=== PATIENT | female | born 1965 | race Caucasian/White ===

== ENCOUNTER 2018-02-28 01:08 | Emergency (ER) | payer OTHER, SELFPAY ==
[2018-02-28] VITALS (46 sets, daily range): BP systolic 99–125; BP diastolic 43–86; PULSE 74–101; RESP 7–26; TEMP 36.5–37.3; O2SAT 91–100
[2018-02-28] MEDS: HYDROmorphone 2 MG/ML VIAL 1 MG IVP ×5 (01:30→05:42)
[2018-02-28 01:32] LABS: Abs Immature Grans 0.03 k/cumm (0.0-0.09); Absolute Basophil Count 0.06 k/cumm (0.0-0.2); Absolute Eosinophil Count 0.19 k/cumm (0.0-0.7); Absolute Lymphocyte Count 2.04 k/cumm (1.2-3.4); Absolute Neutrophil Count 7.76 k/cumm (1.2-6.7); Basophils % 0.6; Eosinophils % 1.8; HCT 37.7 % (36.0-46.0); HGB 12.9 g/dL (12.0-15.5); Immature Grans % 0.3; Lymphocytes % 18.9; Mean Corp. HGB Concentration 34.2 g/dL (32.0-36.0); Mean Corpuscular Hemoglobin 30.3 pg (27.0-33.0); Mean Corpuscular Volume 88.5 fL (80-95); Mean Platelet Volume 9.6 fL (8.0-11.0); Monocytes % 6.5; Neutrophils % 71.9; Platelet Count 309 x1000/uL (130-400); RBC 4.26 m/cumm (4.00-5.20); RBC Distribution Width 12.3 % (11.7-14.6); White Blood Cell Count 10.78 k/cumm (4.4-10.8)
[2018-02-28 01:48] LABS: ALT 23 U/L (12-78); AST 15 U/L (15-37); Albumin 3.3 g/dL (3.4-5.0); Alkaline Phosphatase 82 U/L (46-116); Anion Gap 8.6 mmol/L (3-11); BUN 18 mg/dL (7-18); Bilirubin, Total 0.3 mg/dL (0.2-1.0); CO2 26.4 mmol/L (21.0-32.0); CREATININE 0.68 mg/dL (0.55-1.02); Calcium 8.5 mg/dL (8.5-10.1); Chloride 106 mmol/L (98-107); Glucose 118 mg/dL (70-100); Lipase 100 U/L (73-393); Potassium 3.7 mmol/L (3.5-5.1); Sodium 141 mmol/L (136-145); Total Protein 6.7 g/dL (6.4-8.2); Troponin I < 0.02 ng/mL (0.00-0.06)
[2018-02-28] MEDS: Normal Saline 1,000 ML 1000 ML IV (01:50)
[2018-02-28] MEDS: Ondansetron 4 MG/2 ML VIAL IVP (01:50)
[2018-02-28] MEDS: Breeza Beverage 473 ML BTL PO (01:51)
[2018-02-28] MEDS: Omnipaque 350 MG/ML 50 ML BTL PO (01:51)
--- NOTE | 2018-02-28 02:15 | W.ED.GENAD ---
Discharge Plan Disposition Patient Disposition: [facility] Condition: Stable Discharge Details Chief Complaint: Abd Prob Clinical Impression: SBO (small bowel obstruction) Primary Care Provider: SUSANNA BELLA ED Provider: Milton Armando Home Meds and New Rx's Prescriptions: No Action fluoxetine [Prozac] 40 mg Capsule 40 mg PO DAILY RF: 0 Medical Decision Making This is a 52-year-old female who presents for abdominal pain. The patient had an appendectomy performed roughly 2-1/2 weeks ago. She had her denise removed roughly 4 days ago, and she has the lower inferior component of the postsurgical site packed secondary to a small amount of persistent drainage/dehiscence. Earlier this afternoon she had notable abdominal pain, with associated vomiting and nausea and persistent burping. She went to [place] emergency department, received a CT scan and laboratory workup, which per records appear relatively benign per the physician documentation. She was discharged home with oxycodone and Zofran. Upon arriving home she had continued and then subsequent worsening of her pain and symptoms. No continued vomiting. 911 was called, she was brought via EMS to [facility] for further evaluation. Physical exam does demonstrate notable abdominal pain throughout, voluntary guarding is present. Bowel sounds are present but reduced. Differential is broad, but with negative imaging and negative laboratory workup performed at [place] feel that an acute process is less likely. This could be a colonic spasm, SBO, or potential cardiac etiology that was not previously evaluated. We will get a repeat CT scan due to the severity and nature of her symptoms, however we will perform it with oral contrast and IV contrast to evaluate for any potential mesenteric ischemia. We will control the patient's pain, rehydrate, and reassess. EKG 1: 19 Rate 91, [place] 190, QTc 463, QRS 86, sinus rhythm, no significant ST elevations or depressions, no T wave inversions, no Q waves. 5:[address] scan has returned, and shows evidence of small bowel obstruction. Patient has required 3 mg of Dilaudid to moderate her pain. We will place an NG tube. The remainder of the patient's laboratory workup including troponin EKG are benign. Because the patient had her surgery at [place], that is where the majority of her care is from and since we have no available beds at this time we will contact [place] for a transfer back for further management, inpatient admission, and surgical consultation. 5:10 AM I contacted [facility] and discussed the case with the surgeon Dr May, he agrees on the current assessment and plan, as well as the need for transfer. He agrees to accept transfer, [facility]. I have extensively reviewed the treatment plan with the patient. I have addressed all patient concerns at this time. I have also discussed the plan with the admitting physician and they agree with the current assessment and plan and have agreed to assume responsibility for the patient. All parties demonstrate verbal understanding and agreement with our assessment and plan at this time. HPI General Date/Time Provider Initiated Documentation: 02/28/18 01:16. 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 Mccollum. Initial surgery went well, she had her denise removed this past Friday, 4 days ago. There was a small fluid collection that occurred at the base of the stapled region, and that area was packed with packing, and re-bandaged. This afternoon the patient developed diffuse abdominal pain, one episode of vomiting, multiple episodes of burping, but regular bowel movements. She went to [facility]'s emergency department and was seen and assessed there. Per the records a CT scan non-oral contrast was performed in conjunction with laboratory workup. Case was discussed with the on-call surgeon, and after negative CT scan and a benign laboratory workup patient was discharged home with Zofran and oxycodone. When she arrived at home she had worsening of her pain, increased severity of her symptoms, severe epigastric pain, continued nausea. Of concern for the worsening of her symptoms she called 911 and was transported via EMS at the patient's request to [facility] for further evaluation. Patient states that her symptoms feel similar to her previous small bowel obstruction. They are worsened with palpation, improved by nothing. She has no associated chest pain, hematuria, increased urinary frequency, hematemesis, hematochezia, melena, acholic stool, or dysuria. She denies any other complaints at this time. Related Data Home Medications Medication Instructions Recorded Confirmed fluoxetine [Prozac] 40 mg PO DAILY 02/28/18 02/28/18 General Stated Complaint: Abd Prob FAMILIA: 3 Review of Systems Review of Systems All systems reviewed & are unremarkable except as noted in HPI and below PFSH Social History Smoking/Tobacco Use Status: Never Exam Narrative Exam Narrative: 1.Const: Well-nourished, Well-developed, appearing stated age 2.Eyes: PERRL, no conjunctival injection, and symmetrical lids. 3.ENT: Atraumatic external nose and ears. Dry MM. Neck: Symmetric, trachea midline, No thyromegaly. 4.CVS: +S1/S2, No murmurs or gallops. Peripheral pulses 2+ and equal in all extremities. Brisk capillary refill in all extremities. 5.RESP: Unlabored respiratory effort. Clear to auscultation bilaterally. No wheezes rales or rhonchi 6.GI: Soft, minimally distended, No hepatosplenomegaly. Voluntary guarding throughout, generalized tenderness throughout on palpation of all components of the abdomen. Bowel sounds are present but reduced. Postoperative surgical site appears to be well-healing except for the most inferior component which demonstrates continued open component. The area is packed. No active draining, no associated redness or present discharge. 7.MSK: Normocephalic/Atraumatic, Extremities w/o deformity or ttp No cyanosis or clubbing, Normal movement of all extremities 8.Skin: Warm, Dry. No rashes or lesions. 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 Sensation grossly intact, no focal neurologic deficits. 10.Psych: (AAO) x3. Appropriate mood and affect Course Vital Signs Temperature 36.5 C 02/28/18 01:39 Pulse 101 H 02/28/18 01:39 Respiratory Rate 26 H 02/28/18 01:39 Blood Pressure 99/62 L 02/28/18 01:39 Pulse Oximetry 98 02/28/18 01:39 Temperature 36.5 C 02/28/18 01:39 Temperature Source Tympanic 02/28/18 01:39 Pulse 101 H 02/28/18 01:39 Respiratory Rate 26 H 02/28/18 01:39 Respiratory Effort 02/28/18 01:39 Blood Pressure 99/62 L 02/28/18 01:39 Blood Pressure Position Supine 02/28/18 01:39 Pulse Oximetry 98 02/28/18 01:39 Oxygen Delivery Method Room Air 02/28/18 01:39 Oxygen Flow Rate 0 02/28/18 01:39 Pain Level 9 02/28/18 01:57 Lab/Test Results Lab/Test Results: Laboratory Tests Range/Units 02/28/18 02/28/18 01:15 01:15 WBC (4.4-10.8) k/cumm 10.78 RBC (4.00-5.20) m/cumm 4.26 Hgb (12.0-15.5) g/dL 12.9 Hct (36.0-46.0) % 37.7 MCV (80-95) fL 88.5 MCH (27.0-33.0) pg 30.3 MCHC (32.0-36.0) g/dL 34.2 RDW (11.7-14.6) % 12.3 Plt Count (130-400) x1000/uL 309 MPV (8.0-11.0) fL 9.6 Immature Gran % 0.3 Neutrophils % 71.9 Lymphocytes % 18.9 Monocytes % 6.5 Eosinophils % 1.8 Basophils % 0.6 Absolute Neutrophils (1.2-6.7) k/cumm 7.76 H Absolute Lymphocytes (1.2-3.4) k/cumm 2.04 Absolute Monocytes (0.11-0.7) k/cumm 0.70 Absolute Eosinophils (0.0-0.7) k/cumm 0.19 Absolute Basophils (0.0-0.2) k/cumm 0.06 Sodium (136-145) mmol/L 141 Potassium (3.5-5.1) mmol/L 3.7 Chloride (98-107) mmol/L 106 Carbon Dioxide (21.0-32.0) mmol/L 26.4 Anion Gap (3-11) mmol/L 8.6 BUN (7-18) mg/dL 18 Creatinine (0.55-1.02) mg/dL 0.68 Estimated GFR/1.73 m2 (mL/min/1.73m2) >= 60.00 Glucose (70-100) mg/dL 118 H Calcium (8.5-10.1) mg/dL 8.5 Total Bilirubin (0.2-1.0) mg/dL 0.3 AST (15-37) U/L 15 ALT (12-78) U/L 23 Alkaline Phosphatase (46-116) U/L 82 Troponin I (0.00-0.06) ng/mL < 0.02 Total Protein (6.4-8.2) g/dL 6.7 Albumin (3.4-5.0) g/dL 3.3 L Lipase (73-393) U/L 100
--- NOTE | 2018-02-28 02:31 | ED.GENADUL_ITS ---
Discharge Plan Disposition Patient Disposition: [facility] Condition: Stable Discharge Details Chief Complaint: Abd Prob Clinical Impression: SBO (small bowel obstruction) Primary Care Provider: SUSANNA BELLA ED Provider: Milton Armando Home Meds and New Rx's Prescriptions: No Action fluoxetine [Prozac] 40 mg Capsule 40 mg PO DAILY RF: 0 Medical Decision Making This is a 52-year-old female who presents for abdominal pain. The patient had an appendectomy performed roughly 2-1/2 weeks ago. She had her denise removed roughly 4 days ago, and she has the lower inferior component of the postsurgical site packed secondary to a small amount of persistent drainage/ dehiscence. Earlier this afternoon she had notable abdominal pain, with associated vomiting and nausea and persistent burping. She went to [place] emergency department, received a CT scan and laboratory workup, which per records appear relatively benign per the physician documentation. She was discharged home with oxycodone and Zofran. Upon arriving home she had continued and then subsequent worsening of her pain and symptoms. No continued vomiting. 911 was called, she was brought via EMS to [facility] for further evaluation. Physical exam does demonstrate notable abdominal pain throughout, voluntary guarding is present. Bowel sounds are present but reduced. Differential is broad, but with negative imaging and negative laboratory workup performed at [place] feel that an acute process is less likely. This could be a colonic spasm, SBO, or potential cardiac etiology that was not previously evaluated. We will get a repeat CT scan due to the severity and nature of her symptoms, however we will perform it with oral contrast and IV contrast to evaluate for any potential mesenteric ischemia. We will control the patient's pain, rehydrate, and reassess. EKG 1: 19 Rate 91, [place] 190, QTc 463, QRS 86, sinus rhythm, no significant ST elevations or depressions, no T wave inversions, no Q waves. 5:[address] scan has returned, and shows evidence of small bowel obstruction. Patient has required 3 mg of Dilaudid to moderate her pain. We will place an NG tube. The remainder of the patient's laboratory workup including troponin EKG are benign. Because the patient had her surgery at [place], that is where the majority of her care is from and since we have no available beds at this time we will contact [place] for a transfer back for further management, inpatient admission, and surgical consultation. 5:10 AM I contacted [facility] and discussed the case with the surgeon Dr May, he agrees on the current assessment and plan, as well as the need for transfer. He agrees to accept transfer, [facility]. I have extensively reviewed the treatment plan with the patient. I have addressed all patient concerns at this time. I have also discussed the plan with the admitting physician and they agree with the current assessment and plan and have agreed to assume responsibility for the patient. All parties demonstrate verbal understanding and agreement with our assessment and plan at this time. HPI General Date/Time Provider Initiated Documentation: 02/28/18 01:16 . [facility] Narrative: This is a 52-year-old female with a past medical history of a diaphragmatic hernia as a child, history of small bowel obstruction , , tubal ligation, gallstones, and appendectomy on 13 April at [facility] with Dr. Mccollum. Initial surgery went well, she had her denise removed this past Friday, 4 days ago. There was a small fluid collection that occurred at the base of the stapled region, and that area was packed with packing, and re-bandaged. This afternoon the patient developed diffuse abdominal pain, one episode of vomiting, multiple episodes of burping, but regular bowel movements. She went to [facility]'s emergency department and was seen and assessed there. Per the records a CT scan non-oral contrast was performed in conjunction with laboratory workup. Case was discussed with the on-call surgeon, and after negative CT scan and a benign laboratory workup patient was discharged home with Zofran and oxycodone. When she arrived at home she had worsening of her pain, increased severity of her symptoms, severe epigastric pain, continued nausea. Of concern for the worsening of her symptoms she called 911 and was transported via EMS at the patient's request to [facility] for further evaluation. Patient states that her symptoms feel similar to her previous small bowel obstruction. They are worsened with palpation, improved by nothing. She has no associated chest pain , hematuria, increased urinary frequency, hematemesis, hematochezia, melena, acholic stool, or dysuria. She denies any other complaints at this time. Related Data Home Medications Medication Instructions Recorded Confirmed fluoxetine [Prozac] 40 mg PO DAILY 02/28/18 02/28/18 General Stated Complaint: Abd Prob FAMILIA: 3 Review of Systems Review of Systems All systems reviewed & are unremarkable except as noted in HPI and below PFSH Social History Smoking/Tobacco Use Status: Never Exam Narrative Exam Narrative: 1.Const: Well-nourished, Well-developed, appearing stated age 2.Eyes: PERRL, no conjunctival injection, and symmetrical lids. 3.ENT: Atraumatic external nose and ears. Dry MM. Neck: Symmetric, trachea midline, No thyromegaly. 4.CVS: +S1/S2, No murmurs or gallops. Peripheral pulses 2+ and equal in all extremities. Brisk capillary refill in all extremities. 5.RESP: Unlabored respiratory effort. Clear to auscultation bilaterally. No wheezes rales or rhonchi 6.GI: Soft, minimally distended, No hepatosplenomegaly. Voluntary guarding throughout, generalized tenderness throughout on palpation of all components of the abdomen. Bowel sounds are present but reduced. Postoperative surgical site appears to be well-healing except for the most inferior component which demonstrates continued open component. The area is packed. No active draining , no associated redness or present discharge. 7.MSK: Normocephalic/Atraumatic, Extremities w/o deformity or ttp No cyanosis or clubbing, Normal movement of all extremities 8.Skin: Warm, Dry. No rashes or lesions. 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 Sensation grossly intact, no focal neurologic deficits. 10.Psych: (AAO) x3. Appropriate mood and affect Course Vital Signs Temperature 36.5 C 02/28/18 01:39 Pulse 101 H 02/28/18 01:39 Respiratory Rate 26 H 02/28/18 01:39 Blood Pressure 99/62 L 02/28/18 01:39 Pulse Oximetry 98 02/28/18 01:39 Temperature 36.5 C 02/28/18 01:39 Temperature Source Tympanic 02/28/18 01:39 Pulse 101 H 02/28/18 01:39 Respiratory Rate 26 H 02/28/18 01:39 Respiratory Effort 02/28/18 01:39 Blood Pressure 99/62 L 02/28/18 01:39 Blood Pressure Position Supine 02/28/18 01:39 Pulse Oximetry 98 02/28/18 01:39 Oxygen Delivery Method Room Air 02/28/18 01:39 Oxygen Flow Rate 0 02/28/18 01:39 Pain Level 9 02/28/18 01:57 Lab/Test Results Lab/Test Results: Laboratory Tests Range/Units 02/28/18 02/28/18 01:15 01:15 WBC (4.4-10.8) k/cumm 10.78 RBC (4.00-5.20) m/cumm 4.26 Hgb (12.0-15.5) g/dL 12.9 Hct (36.0-46.0) % 37.7 MCV (80-95) fL 88.5 MCH (27.0-33.0) pg 30.3 MCHC (32.0-36.0) g/dL 34.2 RDW (11.7-14.6) % 12.3 Plt Count (130-400) x1000/uL 309 MPV (8.0-11.0) fL 9.6 Immature Gran % 0.3 Neutrophils % 71.9 Lymphocytes % 18.9 Monocytes % 6.5 Eosinophils % 1.8 Basophils % 0.6 Absolute Neutrophils (1.2-6.7) k/cumm 7.76 H Absolute Lymphocytes (1.2-3.4) k/cumm 2.04 Absolute Monocytes (0.11-0.7) k/cumm 0.70 Absolute Eosinophils (0.0-0.7) k/cumm 0.19 Absolute Basophils (0.0-0.2) k/cumm 0.06 Sodium (136-145) mmol/L 141 Potassium (3.5-5.1) mmol/L 3.7 Chloride (98-107) mmol/L 106 Carbon Dioxide (21.0-32.0) mmol/L 26.4 Anion Gap (3-11) mmol/L 8.6 BUN (7-18) mg/dL 18 Creatinine (0.55-1.02) mg/dL 0.68 Estimated GFR/1.73 m2 (mL/min/1.73m2) >= 60.00 Glucose (70-100) mg/dL 118 H Calcium (8.5-10.1) mg/dL 8.5 Total Bilirubin (0.2-1.0) mg/dL 0.3 AST (15-37) U/L 15 ALT (12-78) U/L 23 Alkaline Phosphatase (46-116) U/L 82 Troponin I (0.00-0.06) ng/mL < 0.02 Total Protein (6.4-8.2) g/dL 6.7 Albumin (3.4-5.0) g/dL 3.3 L Lipase (73-393) U/L 100
[2018-02-28 03:07] LABS: Bilirubin Negative (Negative); Blood Trace-intact (Negative); Clarity Clear; Glucose Negative (Negative); Ketones Negative (Negative); Leukocyte Esterase Negative (Negative); Nitrite Negative (Negative); Specific Gravity 1.025 (1.005-1.025); Urobilinogen 0.2 EU/dL (Up TO 0.2); pH 5.5 (5-8)
[2018-02-28] MEDS: Omnipaque 350 MG/ML 100 ML BTL IJ (03:15)
--- NOTE | 2018-02-28 03:15 | DI.CT_ITS ---
SYMPTOMS/DIAGNOSIS: SEVERE EPIGASTRIC AND DIFFUSE ABDOMINAL PAIN, H/O SMALL BOWEL OBSTRUCTION CT ANGIOGRAPHY ABDOMEN AND PELVIS: CT angiography was performed with multi slice acquisition and multi planar and 3D reconstruction. CT angiography of the abdomen and pelvis was performed with a bolus infusion of 100 cc of Omnipaque 350. Images obtained through the lung bases are unremarkable. Note is made of cholelithiasis. Liver and spleen are unremarkable in appearance. No biliary dilatation seen and pancreas appears intact. Adrenals and kidneys appear normal. No urinary tract calcification or obstruction. Previous left paramedian abdominal surgery noted with apparent gas in the wound ; question details of surgical history to determine whether this is appropriate for the known stage of healing. Mild free fluid in the abdomen. Multiple dilated loops of small bowel in upper to mid abdomen, transition zone probably in mid abdomen. Some fecalization of small bowel contents is noted, suggesting obstruction. Abdominal aorta is of normal diameter. No aortic dissection seen. Iliac arteries appear normal bilaterally. Celiac, SMA and ADELAIDE appear intact, as do the renal arteries bilaterally. CONCLUSION: Negative CT angiographic evaluation of the abdominal arterial circulation. Question incompletely healed or dehiscent left abdominal wound, findings suggesting mid small bowel obstruction.
[2018-02-28 03:17] LABS: Bacteria Moderate HPF (Negative); C & S Indicated? No/Sq. Contamination; Casts Negative LPF (Negative); Crystals Negative HPF (Negative); Epithelial Cells Moderate HPF (Negative); Mucus Trace (Negative)
[2018-02-28] MEDS: Ketorolac 30 MG/ML VIAL IM (04:14)
--- NOTE | 2018-02-28 04:41 | DI.VRAD_ITS ---
EXAM: CT Angiography Abdomen and Pelvis With Intravenous Contrast EXAM DATE/TIME: 02/28/2018 1:39 AM CLINICAL HISTORY: 52 years old, female; Pain; Abdominal pain; Localized; Upper; Prior surgery; Surgery date: <1 month; Surgery type: Appendix removed on 02/11/18, prior tubal ligation 2 c-sections, and diaphramic hernia repair at ; Patient HX: PT has sever abdominal pain, mostly upper. ; Additional info: Mesenteric ischemia protocol per dr. Armando TECHNIQUE: Axial computed tomographic angiography images of the abdomen and pelvis with intravenous contrast material, including non-contrast images if performed. MIP and/or 3D reconstructed images were created and reviewed. All CT scans at this facility use at least one of these dose optimization techniques: automated exposure control; mA and/or kV adjustment per patient size (includes targeted exams where dose is matched to clinical indication); or iterative reconstruction. MIP reconstructed images were created and reviewed. CONTRAST: 100 ml of Omnipaque 350 administered intravenously. COMPARISON: No relevant prior studies available. FINDINGS: Lungs: Minimal basilar dependent atelectasis. Patulous distal esophagus with small amount of reflux. VASCULATURE: Aorta: No aortic aneurysm. No aortic dissection. No significant occlusion. Celiac Trunk and Mesenteric Arteries: No occlusion or significant stenosis. ADELAIDE severely diminutive. Renal Arteries: No occlusion or significant stenosis. Iliac Arteries: No occlusion or significant stenosis. Common Femoral Arteries: No occlusion or significant stenosis. ABDOMEN: Liver: No mass. Gallbladder and bile ducts: Cholelithiasis within a distended gallbladder. Borderline wall thickening. No other evidence of acute cholecystitis. Large calcified gallstone measures 3.5 CM by 2.0 CM. Pancreas: Unremarkable. No mass. No ductal dilation. Spleen: Unremarkable. No splenomegaly. Adrenals: Unremarkable. No mass. Kidneys and ureters: Unremarkable. No solid mass. No hydronephrosis. Stomach and bowel: Suspect partial small bowel obstruction with dilated fluid-filled small bowel within the upper abdomen measuring up to 3.8 CM. Small bowel feces sign in the midline just above the level of the umbilicus with apparent transition in this location. Decompressed more distal small bowel within the right hemiabdomen. Presumably adhesion in this location. Surgical clips within the right hemiabdomen from prior bowel surgery. Appendix: Status post appendectomy. PELVIS: Bladder: Unremarkable. No mass. Reproductive: Unremarkable as visualized. ABDOMEN and PELVIS: Intraperitoneal space: Moderate amount low-attenuation free fluid dependent pelvis. Bones/joints: No acute fracture. No dislocation. Soft tissues: Left anterior paramedian surgical incision with subcutaneous infiltration and fluid/debris, possible incomplete healing versus partial dehiscence. No organized abscess. Lymph nodes: Unremarkable. No enlarged lymph nodes. IMPRESSION: 1. Partial small bowel obstruction with dilated fluid filled small bowel within the upper abdomen. Suspect adhesion as etiology in the midline in a supraumbilical location. No pneumatosis. No free air. 2. Cholelithiasis within a distended gallbladder with mild wall thickening. No pericholecystic fluid. No other intrahepatic or extrahepatic biliary tract dilatation. 3. Surgical incision left paramedian anterior abdominal wall with incomplete healing or partial dehiscence. 4. Aorta, celiac trunk, superior mesenteric artery, renal arteries and iliac arteries normally patent. ADELAIDE appears severely diminutive. 5. Additional nonemergent findings as described above. Dictated and Authenticated by: Jordy Grider MD. Ordering:MANJIT LEYVA MD
[2018-02-28] MEDS: Lidocaine 2% Viscous 15 ML CUP PO (05:41)
== END 2018-02-28 06:12 | disposition short-term general hospital (02) ==
PROVIDERS: Emergency Provider Student in an Organized Health Care Education/Training Program; PCP Legal Medicine
DX: K56.609 Unspecified intestinal obstruction, unspecified as to partial versus complete obstruction (principal); R11.2 Nausea with vomiting, unspecified; R14.2 Eructation; Y83.6 Removal of other organ (partial) (total) as the cause of abnormal reaction of the patient, or of later complication, without mention of misadventure at the time of the procedure
CPT/HCPCS: 36415; 80053; 83690; 96361; 96372; 96374; 96375; 96376; 99285; 74174; 81003; 81015; 84484; 85025; J1885; J2405; J3490; Q9967

== ENCOUNTER 2019-04-27 19:38 | Observation (INO) | payer OTHER, SELFPAY ==
[2019-04-27 19:44] VITALS: BP 112/80; PULSE 85; RESP 18; TEMP 36.5; O2SAT 99
[2019-04-27] MEDS: Normal Saline 1,000 ML 1000 ML IV (20:43)
[2019-04-27] MEDS: Ondansetron 4 MG/2 ML VIAL (20:43)
--- NOTE | 2019-04-27 20:50 | W.ED.GENAD ---
Discharge Plan Disposition Patient Disposition: HOME Condition: Stable Discharge Details Chief Complaint: Abd Prob Clinical Impression: Ileitis, Partial bowel obstruction Primary Care Provider: Chikis Grant ED Provider: Kelsey Huber Home Meds and New Rx's Prescriptions: No Action fluoxetine [Prozac] 40 mg Capsule 40 mg PO DAILY RF: 0 ferrous sulfate [iron] 325 mg (65 mg iron) Tablet 325 mg PO DAILY RF: 0 docusate sodium [Colace] 100 mg Capsule 100 mg PO BID RF: 0 ascorbic acid (vitamin C) [Vitamin C] 1,000 mg Tablet 1,000 mg PO DAILY RF: 0 Medical Decision Making Is a 53-year-old patient who presents for complaints of abdominal pain which began at 530 after eating a cookie at 5:00. Patient reports abdominal pain is coming in waves of sharp pain. Patient reports associated with nausea. Patient describes this is very similar in onset of previous bowel obstruction, she is concerned for same. Patient denies fever, chills. Denies urinary urgency or frequency. Patient reports previously she had bowel obstruction which began in this fashion she was seen at our hospital ultimately had a CT which was unremarkable for obvious findings and was seen at approximately 2 in the morning had a scan with oral contrast which revealed small bowel obstruction. Patient does report history of previous appendectomy. Morphine and Zofran as well as IV fluids offered after initial evaluation. Patient required multiple doses of morphine to remain comfortable. Patient's labs are reassuring. Patient remains afebrile. Patient CT scan does reveal acute terminal and distal ileitis for which both infectious and inflammatory etiologies should be entertained. Of note terminal ileitis is causing very mild partial obstruction/increased transition time of the proximal loops of the ileum as manifested by fecal cessation of the intra-lumen ileal content. There is no discrete evidence of bowel obstruction at this time. Given patient's clinical presentation, history of bowel obstruction requiring admission in the past and similar presentation of symptoms with CT finding I do feel it is reasonable at this time to admit the patient for observation for possible developing obstruction. Call to surgeon. Dr. Walls. Will accept patient's admission and recommends placing holding orders, she will evaluate the patient in the morning. Patient agrees with plan of care of admission. HPI General Date/Time Provider Initiated Documentation: 04/27/19 19:39. HPI Narrative: 53-year-old patient presents to the emergency room this evening for onset of abdominal pain at approximately 530 after eating a cookie at 5:00. Patient reports associated nausea. Patient reports abdominal pain comes in. Sharp crampy waves. Patient reports this is typical of her previous presentations of small bowel obstruction, concern for same. Patient reports pain is intermittently quite sharp. Patient does report a bowel movement this evening but has passed no gas since. Patient denies urinary urgency, frequency or dysuria. Patient denies fevers or chills. Denies radiating pain into the back. Patient reports pain is periumbilical, however somewhat diffuse. Related Data Home Medications Medication Instructions Recorded Confirmed fluoxetine [Prozac] 40 mg PO DAILY 02/28/18 04/27/19 ascorbic acid (vitamin C) [Vitamin 1,000 mg PO DAILY 04/27/19 04/27/19 C] docusate sodium [Colace] 100 mg PO BID 04/27/19 04/27/19 ferrous sulfate [iron] 325 mg PO DAILY 04/27/19 04/27/19 Allergies Allergy/AdvReac Type Severity Reaction Status Date / Time erythromycin base Allergy Unverified 04/27/19 19:48 General Stated Complaint: Abd Prob FAMILIA: 3 Review of Systems All systems reviewed & are unremarkable except as noted in HPI and below Constitutional Constitutional: Denies chills, Denies fatigue, Denies fever(s), Denies headache(s) and Denies malaise ENT Ears, Nose, Mouth, and Throat: Denies headache(s), Denies nasal congestion and Denies sore throat Respiratory Respiratory: Denies cough Gastrointestinal Gastrointestinal: Reports abdominal pain, Reports cramping, Denies diarrhea, Reports nausea and Denies vomiting Genitourinary Genitourinary: Denies dysuria, Denies urinary hesitancy and Denies urinary urgency Neurologic Neurologic: Denies headache(s) Endocrine Endocrine: Denies fatigue [facility] Social History Smoking/Tobacco Use Status: Former Tobacco Use Alcohol Intake: current Alcohol Intake frequency: a few times a week Drug use: Never Do you feel safe at home: Yes Do you feel safe in your relationship?: Yes Exam Narrative Exam Narrative: CONST: Healthy appearing patient, in no acute distress. Well hydrated. Alert and alert. HENMT: Head nomocephalic, normal to inspection. Atraumatic. Hearing grossly normal. Oral mucosa normal. Tounge normal. Dentition normal. Normal posterior oropharynx. Uvula midline. EYES: General normal appearance. Alignment normal. Eyelids normal. Conjunctiva normal. Sclera normal. PERRL. NECK: Normal visual inspection. FROM. No lymphadenopathy. Trachea midline. No Midline tenderness. CHEST: Normal insepection of the chest. RESP: Normal respiratory effort. Speaking full sentences. No cough. No wheezing. No retractions. Clear to auscaltation. Breath sound equal and present bilaterally. CARDIO: No JVD. Normal PMI. Regular Rate. Regular Rhythm. Normal peripheral pulses. GI: Normal inspection of abdomen. No distension. Soft. Mild abdominal tenderness periumbilical. Bowel sounds present in all 4 quadrants. No rebound. No gaurding. Course Vital Signs Vital signs: Vital Signs Temperature 36.5 C 04/27/19 19:44 Pulse 85 04/27/19 19:44 Respiratory Rate 18 04/27/19 19:44 Blood Pressure 112/80 04/27/19 19:44 Pulse Oximetry 99 04/27/19 19:44 Temperature 36.5 C 04/27/19 19:44 Temperature Source Skin 04/27/19 19:44 Pulse 85 04/27/19 19:44 Respiratory Rate 18 04/27/19 19:44 Respiratory Effort Non-Labored 04/27/19 19:51 Blood Pressure 112/80 04/27/19 19:44 Blood Pressure Position Sitting 04/27/19 19:44 Pulse Oximetry 99 04/27/19 19:44 Oxygen Delivery Method Room Air 04/27/19 19:44 Oxygen Flow Rate 0 04/27/19 19:44 Pain Level 6 04/27/19 19:44
[2019-04-27] MEDS: Omnipaque 350 MG/ML 50 ML BTL IV (20:57)
[2019-04-27 21:06] LABS: ALT 19 U/L (14-59); AST 16 U/L (15-37); Albumin 3.7 g/dL (3.4-5.0); Alkaline Phosphatase 72 U/L (46-116); Anion Gap 7.6 mmol/L (3-11); BUN 20 mg/dL (7-18); Bilirubin, Total 0.2 mg/dL (0.2-1.0); CO2 28.4 mmol/L (21.0-32.0); CREATININE 0.66 mg/dL (0.55-1.02); Calcium 8.7 mg/dL (8.5-10.1); Chloride 104 mmol/L (98-107); Glucose 90 mg/dL (74-106); Lipase 142 U/L (73-393); Sodium 140 mmol/L (136-145); Total Protein 7.2 g/dL (6.4-8.2)
[2019-04-27 21:15] LABS: Abs Immature Grans 0.01 k/cumm (0.0-0.09); Absolute Basophil Count 0.04 k/cumm (0.0-0.2); Absolute Eosinophil Count 0.18 k/cumm (0.0-0.7); Absolute Lymphocyte Count 2.84 k/cumm (1.2-3.4); Absolute Monocyte Count 0.51 k/cumm (0.11-0.7); Absolute Neutrophil Count 4.12 k/cumm (1.2-6.7); Basophils % 0.5; Eosinophils % 2.3; HCT 40.4 % (36.0-46.0); HGB 13.6 g/dL (12.0-15.5); Immature Grans % 0.1; Lymphocytes % 36.9; Mean Corp. HGB Concentration 33.7 g/dL (32.0-36.0); Mean Corpuscular Volume 89.2 fL (80-95); Mean Platelet Volume 9.9 fL (8.0-11.0); Monocytes % 6.6; Neutrophils % 53.6; Platelet Count 233 x1000/uL (130-400); RBC 4.53 m/cumm (4.00-5.20); RBC Distribution Width 12.3 % (11.7-14.6)
[2019-04-27 21:44] LABS: Bilirubin Negative (Negative); Blood Negative (Negative); Clarity Clear (Clear); Glucose Negative (Negative); Ketones Negative (Negative); Leukocyte Esterase Negative (Negative); Nitrite Negative (Negative); Specific Gravity 1.015 (1.005-1.025); Urobilinogen 0.2 EU/dL (Up TO 0.2)
[2019-04-27 21:46] VITALS: BP 114/47; PULSE 72; RESP 18; O2SAT 98
[2019-04-27] MEDS: Omnipaque 350 MG/ML 100 ML BTL IJ (22:32)
--- NOTE | 2019-04-27 22:33 | DI.CT_ITS ---
EXAM: CT ABDOMEN PELVIS W CLINICAL HISTORY: R/o SBO,ABD PAIN, NAUSEA TECHNIQUE: Imaging Protocol: Axial computed tomography images with coronal and sagittal reformatted images were created and reviewed CONTRAST MATERIAL: Intravenous: Omnipaque 350 Contrast volume:100 mL contrast route:IV - Oral: Yes COMPARISON: CT ABDOMEN/ PELVIS CTA from 02/28/2018 FINDINGS: ABDOMEN: Lung Bases: Normal where visualized. Liver: Normal density. There is an indeterminate 1 centimeter hypodense lesion in the left lobe of th e liver which was present on the prior examination. Portal, superior mesenteric and splenic veins ar e patent. Gallbladder and biliary tract: There is a 3.3 centimeter stone in the gallbladder. The gallbladder i s again located toward the midline and slightly to the left. There is no biliary ductal dilatation. Pancreas: Normal density, no abnormal calcifications or inflammatory process. Spleen: Normal. Kidneys: Normal size, contour and axis. No radiodense stones or obstructive uropathy. No masses seen. Adrenal glands: No masses seen. Abdominal Aorta: Abdominal portion non-dilated. PELVIS: Bladder: Symmetric distention, no gross wall thickening. Bowel: There is bowel wall thickening seen in the terminal ileum and distal ileum. There is increase d attenuation of the surrounding fat. There is also fecalization of the proximal bowel. The remaind er of the bowel shows no evidence of obstruction or inflammation. There is a moderate amount of stoo l throughout the colon. There is no evidence of acute appendicitis. Peritoneal cavity: No ascites, collection or mesenteric inflammatory response. Bones: Degenerative changes are seen in the spine. Reproductive organs: Within normal limits. Lymph nodes: Unremarkable. Impression: Wall thickening and associated inflammatory changes seen in the distal and terminal ileum consistent with ileitis. This may reflect an infectious or inflammatory etiology. There is fecalization of the intraluminal contents of the distal small bowel, likely caused by the inflammatory changes in the di stal ileum. This may represent a mild partial obstruction. DATA REPOSITORY: All CT scans at this facility are submitted to the National Radiology Data Registry (NRDR) Dose Index Registry (DIR) with the [employer] (ACR). RADIATION OPTIMIZATION: All CT scans at this facility use at least one of these dose optimization te chniques: automated exposure control; mA and/or kV adjustment per patient size (includes targeted exa ms where dose is matched to clinical indication); or iterative reconstruction.
[2019-04-27 23:10] VITALS: BP 104/59; PULSE 77; RESP 18; O2SAT 100
--- NOTE | 2019-04-27 23:10 | DI.VRAD_ITS ---
PROCEDURE INFORMATION: Exam: CT Abdomen And Pelvis With Contrast Exam date and time: 04/27/2019 10:37 PM Age: 53 years old Clinical history: Generalized; Prior surgery; Surgery date: 6+ months; Surgery type: Tubal ligation, appendectomy, ; Patient HX: Nausea and abdominal pain this evening TECHNIQUE: Imaging protocol: Computed tomography of the abdomen and pelvis with intravenous contrast. Radiation optimization: All CT scans at this facility use at least one of these dose optimization techniques: automated exposure control; mA and/or kV adjustment per patient size (includes targeted exams where dose is matched to clinical indication); or iterative reconstruction. Contrast material: OMNIPAQUE 350; Contrast volume: 100 ml; Contrast route: IV LAC; Other contrast: Route: Oral, Material: Omnipaque 350, Volume: 50; COMPARISON: CT ABDOMEN/ PELVIS CTA 02/28/2018 2:32 AM FINDINGS: Lungs: The visualized portions of the lung bases demonstrate no acute disease. Liver: There is moderate enlargement of the liver. There is a diffuse decrease in hepatic parenchymal density, consistent with fatty infiltration. There is a 1.3 cm hypodense lesion in the left hepatic lobe which appears benign and most like represents a small cyst. No acute liver pathology is appreciated otherwise. Gallbladder and bile ducts: Cholelithiasis is present. Please note that the gallbladder is localized towards the left side of the liver. No biliary ductal dilation. Pancreas: Normal. No ductal dilation. Spleen: Normal. No splenomegaly. Adrenals: Normal. No mass. Kidneys and ureters: Normal. No hydronephrosis. Stomach and bowel: There is wall thickening and hyperenhancement of the terminal ileum and distal ileum, accompanied by surrounding mesenteric fat stranding and mild free fluid in the distal ileal loops. There is fecalization noted throughout the distal ileum and terminal ileum as well. No other segmental bowel wall thickening is appreciated at this time. No definitive evidence of bowel obstruction. There is moderately excessive colonic stool content. Appendix: No evidence of appendicitis. Intraperitoneal space: Unremarkable. No free air. No significant fluid collection. Vasculature: Unremarkable. No abdominal aortic aneurysm. Lymph nodes: Unremarkable. No enlarged lymph nodes. Bladder: Unremarkable as visualized. Reproductive: Unremarkable as visualized. Bones/joints: No acute abnormality or aggressive osseous lesion. Soft tissues: Unremarkable. IMPRESSION: 1. Acute terminal and distal ileitis for which both infectious and inflammatory etiologies should be entertained. Please note that the terminal ileitis is causing a very mild partial obstruction/increased transit time in the proximal loops of ileum, as manifested by fecalization of intraluminal ileal content. There is no discrete evidence of bowel obstruction at this time. 2. No other acute abdominopelvic pathology otherwise. Dictated and Authenticated by: Alex Kline MD. Ordering:HERNANDO Cole MD
[2019-04-28] VITALS (7 sets, daily range): BP systolic 98–107; BP diastolic 55–74; PULSE 67–81; RESP 16–18; TEMP 36.4–37.1; O2SAT 96–100
[2019-04-28] MEDS: Normal Saline Flush 10 ML SYR IVP (00:47)
[2019-04-28] MEDS: Normal Saline 1,000 ML 125 ML IV ×2 (00:47→08:18)
--- NOTE | 2019-04-28 07:35 | HPE_ITS ---
Date of service: 04/28/19 Time of Service: 07:35 Assessment and Plan Assessment and plan (1) Partial small bowel obstruction: Status: Acute Assessment and plan: ABD pain improving overnight following NPO and IV hydration. Tylenol and Toradol is available for pain. DIET- Will continue NPO Encouraged her to ambulate and sit out of bed. Nausea has resolved. However if this returns or she starts vomiting will consider NG tube placement. Will re-evaluate around lunch. If she continues to improve and bowel sounds increase will start liquid diet. History of Present Illness History of Present Illness Chief Complaint: ABD Pain Narrative: 53 y/o female with a history of SBO presented to the ER last evening with complaints of abdominal pain x ~3 hrs after eating a cookie. She reported the pain as sharp and came in waves. This was associated with nausea, no vomiting. She denies fevers, chills or night sweats. She reports that she has recently been admitted to [facility] for similar symptoms and was diagnosed with SBO. She has had numerous abdominal surgeries in the past to include repair of a diaphragmatic hernia, c- sections x 2, appendectomy, tubal ligation and pannectomy. She has been NPO overnight and this morning is reporting that she is feeling much better. She denies any abdominal pain or nausea at this time. She has not had a Colonoscopy. Review of Systems All systems reviewed & are unremarkable except as noted in HPI and below [facility] Social History Smoking/Tobacco Use Status: Former Tobacco Use Alcohol Intake: current Alcohol Intake frequency: a few times a week Drug use: Never Do you feel safe at home: Yes Do you feel safe in your relationship?: Yes Meds Home Medications and Allergies Home Medications Medication Instructions Recorded Confirmed Type fluoxetine [Prozac] 40 mg PO DAILY 02/28/18 04/27/19 History ascorbic acid (vitamin C) [Vitamin 1,000 mg PO DAILY 04/27/19 04/27/19 History C] docusate sodium [Colace] 100 mg PO BID 04/27/19 04/27/19 History ferrous sulfate [iron] 325 mg PO DAILY 04/27/19 04/27/19 History Allergies Allergy/AdvReac Type Severity Reaction Status Date / Time erythromycin base Allergy Unverified 04/27/19 19:48 Exam Const General: cooperative, healthy appearing and comfortable Orientation: alert and oriented x3 Resp Effort & Inspection: normal respiratory effort, no audible wheezes and no cough GI Inspection: normal to inspection and non-distended Palpation: soft, no guarding and nontender Auscultation: hypoactive bowel sounds Results Labs Result diagrams: 04/27/19 20:20 04/28/19 07:18 Labs: Laboratory Results - last 24 hr 04/27/19 04/27/19 04/27/19 20:20 20:20 21:00 WBC 7.70 RBC 4.53 Hgb 13.6 Hct 40.4 MCV 89.2 MCH 30.0 MCHC 33.7 RDW 12.3 Plt Count 233 MPV 9.9 Immature Gran % 0.1 Neutrophils % 53.6 Lymphocytes % 36.9 Monocytes % 6.6 Eosinophils % 2.3 Basophils % 0.5 Absolute Neutrophils 4.12 Absolute Lymphocytes 2.84 Absolute Monocytes 0.51 Absolute Eosinophils 0.18 Absolute Basophils 0.04 Sodium 140 Potassium 4.0 Chloride 104 Carbon Dioxide 28.4 Anion Gap 7.6 BUN 20 H Creatinine 0.66 Estimated GFR/1.73 m2 >= 60.00 Glucose 90 Calcium 8.7 Total Bilirubin 0.2 AST 16 ALT 19 Alkaline Phosphatase 72 Total Protein 7.2 Albumin 3.7 Lipase 142 Urine Color Yellow Urine Clarity Clear Urine pH 6.0 Ur Specific [place] 1.015 Urine Protein Negative Urine Ketones Negative Urine Blood Negative Urine Nitrite Negative Urine Bilirubin Negative Urine Urobilinogen 0.2 Ur Leukocyte Esterase Negative Urine Glucose Negative Last Vital Signs Temp 36.4 C L 04/28/19 03:40 Pulse 73 04/28/19 03:40 Resp 16 04/28/19 03:40 BP 101/68 04/28/19 03:40 Pulse Ox 96 04/28/19 03:40
[2019-04-28 07:46] LABS: Anion Gap 6.1 mmol/L (3-11); BUN 12 mg/dL (7-18); CO2 27.9 mmol/L (21.0-32.0); CREATININE 0.59 mg/dL (0.55-1.02); Chloride 110 mmol/L (98-107); Glucose 88 mg/dL (74-106); Potassium 4.1 mmol/L (3.5-5.1); Sodium 144 mmol/L (136-145)
[2019-04-28 07:47] LABS: Magnesium 1.9 mg/dL (1.8-2.4)
--- NOTE | 2019-04-28 08:11 | INITIAL_ITS ---
- If Service Date Differs Date of service: 04/28/19 Time of Service: 08:11 Care Management Initial Assess REASON FOR HOSPITALIZATION:: Partial SBO PAST MEDICAL HISTORY/PAST SURGICAL HISTORY:: No documented past medical history. past surgical history: C/S X2. appendectomy. tubal ligation. pannectomy PREVIOUS FUNCTIONAL STATUS/SOCIAL/FAMILY SUPPORTS:: Marilin lives in a single family home in [place] with her . She has 2 adult children who live in the area and several grandchildren. Marilin is independent in the community. 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 CURRENT FUNCTIONAL STATUS:: Marilin was sitting up in bed when CM met with her. She was pleasant and engaged readily in conversation. Marilin states that she is feeling much better. This is not the first time she has had a SBO and thinks that she caught it early. She was previously hospitalized at [facility] and required an ng tube. She stated that it was awful and is very happy that she does not need one now. She states she has been told she will be able to go home tonight or tomorrow morning if she can tolerate dolid food. She is doing well with liquids. ADVANCE DIRECTIVES:: None on file Has patient been provided with information about the portal?: Yes Did the patient sign up for the portal?: No CODE STATUS:: Full Code INSURANCE COVERAGE / FINANCIAL ISSUES:: [facility] CURRENT HOME/COMMUNITY SERVICES/EQUIPMENT:: none PRIMARY CARE PHYSICIAN:: Chikis Grant POTENTIAL DISCHARGE NEEDS:: Follow up with PCP and discharge plan of care PATIENT/FAMILY EDUCATION NEEDS:: Discharge plan, limitations, follow up plan, Ask Me [employer] TRANSPORTATION:: via private vehicle with family PLAN:: Marilin will likely be discharged home with no services. She will follow up with her surgeon and discharge plan of care. She will transport via private vehicle with her . CM will continue to support patient, family and discharge planning needs.
[2019-04-28] MEDS: FLUoxetine 20 MG CAP 40 MG PO (08:18)
--- NOTE | 2019-04-28 14:42 | W.NUTCONSULT ---
Date of service: 04/28/19 Time of Service: 14:42 Nutritional Consult ASSESSMENT: 53 year old female s/p ER visit for partial small bowel obstruction. NPO with IV fluids x 24 hours, diet advanced to Regular at lunch today and able to eat without issue per nursing. BMI indicates class 2 obesity. Not considered at nutritional risk at this time. screen by Thania Loya MS, RDN MONITORING AND EVALUATION: wioo monitor weight and diet progression and adjust meal plan as warranted. Time Spent in Nutritional Counseling and Treatment: 0 time spent face to face
--- NOTE | 2019-04-28 15:50 | W.PM.PROGNOT ---
Date of Service Date of service: 04/28/19 Time of Service: 15:50 Assessment and Plan Assessment and plan (1) Partial small bowel obstruction: Status: Acute Assessment and plan: A\\ Looks like it has resolved P\\ Will get her a soft, low fiber diet tonight and make sure she tolerates that If she does well overnight may go home tomorrow Subjective Subjective Interval history since last seen: Patient feels well. No pain. No nausea. Has tolerated a clear liquid diet. No BM today but had 2 yesterday. Intermittent flatus Exam GI Auscultation: normal bowel sounds Objective Objective Clinical Data: Abnormal lab results 04/27/19 04/28/19 Range/Units 20:20 07:18 Chloride 110 H (98-107) mmol/L BUN 20 H (7-18) mg/dL Calcium 8.0 L (8.5-10.1) mg/dL Vital Signs Temperature 98.1 F 04/28/19 11:55 Temperature Source Tympanic 04/28/19 11:55 Pulse 77 04/28/19 11:55 Pulse Rhythm Regular 04/28/19 08:00 Respiratory Rate 18 04/28/19 11:55 Respiratory Effort Non-Labored 04/28/19 08:00 Respiratory Depth Normal 04/28/19 08:00 Respiratory Pattern Normal 04/28/19 08:00 Blood Pressure 100/68 04/28/19 11:55 Blood Pressure Position Sitting 04/27/19 19:44 Pulse Oximetry 98 04/28/19 11:55 Oxygen Delivery Method Room Air 04/28/19 11:55 Oxygen Flow Rate 0 04/28/19 11:55 Pain Level 0 04/28/19 11:55 Intake & Output 04/27/19 04/28/19 04/28/19 23:59 11:59 23:59 Intake Total 1000 / 1000 949.583 / 949.583 Output Total 400 / 400 Balance 1000 / 1000 549.583 / 549.583 Weight 214 lb 15.987 oz 214 lb 15.987 oz Intake: IV 1000 / 1000 949.583 / 949.583 Output: Urine 400 / 400 Other: Urine Color Yellow Urine Appearance Clear Urine Odor None Comment voids independently in toilet Voiding Methods Toilet Laboratory Results WBC 7.70 k/cumm (4.4-10.8) 04/27/19 20:20 RBC 4.53 m/cumm (4.00-5.20) 04/27/19 20:20 Hgb 13.6 g/dL (12.0-15.5) 04/27/19 20:20 Hct 40.4 % (36.0-46.0) 04/27/19 20:20 MCV 89.2 fL (80-95) 04/27/19 20:20 MCH 30.0 pg (27.0-33.0) 04/27/19 20:20 MCHC 33.7 g/dL (32.0-36.0) 04/27/19 20:20 RDW 12.3 % (11.7-14.6) 04/27/19 20:20 Plt Count 233 x1000/uL (130-400) 04/27/19 20:20 MPV 9.9 fL (8.0-11.0) 04/27/19 20:20 Immature Gran % 0.1 04/27/19 20:20 Neutrophils % 53.6 04/27/19 20:20 Lymphocytes % 36.9 04/27/19 20:20 Monocytes % 6.6 04/27/19 20:20 Eosinophils % 2.3 04/27/19 20:20 Basophils % 0.5 04/27/19 20:20 Absolute Neutrophils 4.12 k/cumm (1.2-6.7) 04/27/19 20:20 Absolute Lymphocytes 2.84 k/cumm (1.2-3.4) 04/27/19 20:20 Absolute Monocytes 0.51 k/cumm (0.11-0.7) 04/27/19 20:20 Absolute Eosinophils 0.18 k/cumm (0.0-0.7) 04/27/19 20:20 Absolute Basophils 0.04 k/cumm (0.0-0.2) 04/27/19 20:20 Sodium 144 mmol/L (136-145) 04/28/19 07:18 Potassium 4.1 mmol/L (3.5-5.1) 04/28/19 07:18 Chloride 110 mmol/L (98-107) H 04/28/19 07:18 Carbon Dioxide 27.9 mmol/L (21.0-32.0) 04/28/19 07:18 Anion Gap 6.1 mmol/L (3-11) 04/28/19 07:18 BUN 12 mg/dL (7-18) D 04/28/19 07:18 Creatinine 0.59 mg/dL (0.55-1.02) 04/28/19 07:18 Estimated GFR/1.73 m2 >= 60.00 (mL/min/1.73m2) 04/28/19 07:18 Glucose 88 mg/dL (74-106) 04/28/19 07:18 Calcium 8.0 mg/dL (8.5-10.1) L 04/28/19 07:18 Magnesium 1.9 mg/dL (1.8-2.4) 04/28/19 07:18 Total Bilirubin 0.2 mg/dL (0.2-1.0) 04/27/19 20:20 AST 16 U/L (15-37) 04/27/19 20:20 ALT 19 U/L (14-59) 04/27/19 20:20 Alkaline Phosphatase 72 U/L (46-116) 04/27/19 20:20 Total Protein 7.2 g/dL (6.4-8.2) 04/27/19 20:20 Albumin 3.7 g/dL (3.4-5.0) 04/27/19 20:20 Lipase 142 U/L (73-393) 04/27/19 20:20 Urine Color Yellow (Yellow) 04/27/19 21:00 Urine Clarity Clear (Clear) 04/27/19 21:00 Urine pH 6.0 (5-8) 04/27/19 21:00 Ur Specific [place] 1.015 (1.005-1.025) 04/27/19 21:00 Urine Protein Negative mg/dL (Negative) 04/27/19 21:00 Urine Ketones Negative mg/dL (Negative) 04/27/19 21:00 Urine Blood Negative (Negative) 04/27/19 21:00 Urine Nitrite Negative (Negative) 04/27/19 21:00 Urine Bilirubin Negative (Negative) 04/27/19 21:00 Urine Urobilinogen 0.2 EU/dL (Up TO 0.2) 04/27/19 21:00 Ur Leukocyte Esterase Negative (Negative) 04/27/19 21:00 Urine Glucose Negative mg/dL (Negative) 04/27/19 21:00
[2019-04-29 00:27] VITALS: BP 96/66; PULSE 72; RESP 18; TEMP 37; O2SAT 97
[2019-04-29 03:30] VITALS: BP 99/68; PULSE 69; RESP 16; TEMP 36.5; O2SAT 98
--- NOTE | 2019-04-29 07:06 | PGE_ITS ---
Documented by User: PAVAN Lucero 04/29/19 07:09 Date of Service Date of service: 04/29/19 Time of Service: 07:07 Assessment and Plan Assessment and plan (1) Partial small bowel obstruction: Status: Acute Assessment and plan: Appears the partial SBO has resolved. Tolerating low fiber diet. Will order colace and miralax for the patient to receive this morning. Afebrile Disposition- D/C home later today on low fiber diet. Subjective Subjective Interval history since last seen: Patient reports that she has felt good overnight. She tolerated low fiber diet for dinner without any discomfort over night. She reports passing some flatus, No BM. She states that at home she takes a daily stool softner which she has not been getting. Exam Const General: cooperative, healthy appearing and comfortable Orientation: alert and oriented x3 Resp Effort & Inspection: normal respiratory effort, no audible wheezes and no cough GI Inspection: normal to inspection and non-distended Palpation: soft, no guarding and nontender Auscultation: normal bowel sounds Objective Objective Clinical Data: Abnormal lab results 04/28/19 Range/Units 07:18 Chloride 110 H (98-107) mmol/L Calcium 8.0 L (8.5-10.1) mg/dL Vital Signs Temperature 36.5 C 04/29/19 03:30 Temperature Source Skin 04/29/19 03:30 Pulse 69 04/29/19 03:30 Pulse Rhythm Regular 04/29/19 03:30 Respiratory Rate 16 04/29/19 03:30 Respiratory Effort Non-Labored 04/29/19 03:30 Respiratory Depth Normal 04/29/19 03:30 Respiratory Pattern Normal 04/29/19 03:30 Blood Pressure 99/68 L 04/29/19 03:30 Blood Pressure Position Sitting 04/27/19 19:44 Pulse Oximetry 98 04/29/19 03:30 Oxygen Delivery Method Room Air 04/29/19 03:30 Oxygen Flow Rate 0 04/29/19 03:30 Pain Level 0 04/29/19 03:30 Intake & Output 04/28/19 04/29/19 04/29/19 18:59 06:59 18:59 Intake Total 939.583 / 2179.583 1240 / 2179.583 Output Total 750 / 750 Balance 939.583 / 1429.583 490 / 1429.583 Intake: IV 939.583 / 8831.082 0085 / 1939.583 Oral 240 / 240 Output: Urine 750 / 750 Other: Urine Color Yellow Urine Appearance Clear Clear Urine Odor None Comment voids independently in toilet Voiding Methods Toilet Laboratory Results WBC 7.70 k/cumm (4.4-10.8) 04/27/19 20:20 RBC 4.53 m/cumm (4.00-5.20) 04/27/19 20:20 Hgb 13.6 g/dL (12.0-15.5) 04/27/19 20:20 Hct 40.4 % (36.0-46.0) 04/27/19 20:20 MCV 89.2 fL (80-95) 04/27/19 20:20 MCH 30.0 pg (27.0-33.0) 04/27/19 20:20 MCHC 33.7 g/dL (32.0-36.0) 04/27/19 20:20 RDW 12.3 % (11.7-14.6) 04/27/19 20:20 Plt Count 233 x1000/uL (130-400) 04/27/19 20:20 MPV 9.9 fL (8.0-11.0) 04/27/19 20:20 Immature Gran % 0.1 04/27/19 20:20 Neutrophils % 53.6 04/27/19 20:20 Lymphocytes % 36.9 04/27/19 20:20 Monocytes % 6.6 04/27/19 20:20 Eosinophils % 2.3 04/27/19 20:20 Basophils % 0.5 04/27/19 20:20 Absolute Neutrophils 4.12 k/cumm (1.2-6.7) 04/27/19 20:20 Absolute Lymphocytes 2.84 k/cumm (1.2-3.4) 04/27/19 20:20 Absolute Monocytes 0.51 k/cumm (0.11-0.7) 04/27/19 20:20 Absolute Eosinophils 0.18 k/cumm (0.0-0.7) 04/27/19 20:20 Absolute Basophils 0.04 k/cumm (0.0-0.2) 04/27/19 20:20 Sodium 144 mmol/L (136-145) 04/28/19 07:18 Potassium 4.1 mmol/L (3.5-5.1) 04/28/19 07:18 Chloride 110 mmol/L (98-107) H 04/28/19 07:18 Carbon Dioxide 27.9 mmol/L (21.0-32.0) 04/28/19 07:18 Anion Gap 6.1 mmol/L (3-11) 04/28/19 07:18 BUN 12 mg/dL (7-18) D 04/28/19 07:18 Creatinine 0.59 mg/dL (0.55-1.02) 04/28/19 07:18 Estimated GFR/1.73 m2 >= 60.00 (mL/min/1.73m2) 04/28/19 07:18 Glucose 88 mg/dL (74-106) 04/28/19 07:18 Calcium 8.0 mg/dL (8.5-10.1) L 04/28/19 07:18 Magnesium 1.9 mg/dL (1.8-2.4) 04/28/19 07:18 Total Bilirubin 0.2 mg/dL (0.2-1.0) 04/27/19 20:20 AST 16 U/L (15-37) 04/27/19 20:20 ALT 19 U/L (14-59) 04/27/19 20:20 Alkaline Phosphatase 72 U/L (46-116) 04/27/19 20:20 Total Protein 7.2 g/dL (6.4-8.2) 04/27/19 20:20 Albumin 3.7 g/dL (3.4-5.0) 04/27/19 20:20 Lipase 142 U/L (73-393) 04/27/19 20:20 Urine Color Yellow (Yellow) 04/27/19 21:00 Urine Clarity Clear (Clear) 04/27/19 21:00 Urine pH 6.0 (5-8) 04/27/19 21:00 Ur Specific [place] 1.015 (1.005-1.025) 04/27/19 21:00 Urine Protein Negative mg/dL (Negative) 04/27/19 21:00 Urine Ketones Negative mg/dL (Negative) 04/27/19 21:00 Urine Blood Negative (Negative) 04/27/19 21:00 Urine Nitrite Negative (Negative) 04/27/19 21:00 Urine Bilirubin Negative (Negative) 04/27/19 21:00 Urine Urobilinogen 0.2 EU/dL (Up TO 0.2) 04/27/19 21:00 Ur Leukocyte Esterase Negative (Negative) 04/27/19 21:00 Urine Glucose Negative mg/dL (Negative) 04/27/19 21:00 Documented by User: Matilde Marcelo MD 04/29/19 10:27
--- NOTE | 2019-04-29 07:09 | W.PM.DS.N ---
Documented by User: PAVAN Lucero 04/29/19 07:14 Date of service: 04/29/19 Time of Service: 07:10 DS: Diagnosis Discharge Diagnosis (1) Partial small bowel obstruction: Status: Acute Discharge Plan Disposition Patient Disposition: HOME Condition: Stable Discharge Details Chief Complaint: Abd Prob Clinical Impression: Ileitis, Partial bowel obstruction Reason For Visit: ILEITIS, PARTIAL SBO Admit Date/Time: 04/27/19 23:20 Admit Provider: Yady Walls Attending Provider: Yady Walls Primary Care Provider: Chikis Grant ED Provider: Kelsey Huber Hospital Course Hospital Course: 53 y/o female admitted through the ER for abdominal pain, with question of partial small bowel obstruction on CT scan. Her symptoms resolved after being NPO and with IV hydration x ~16hrs. She was then started on low fiber diet for dinner which she tolerated well. Discussed that she should proceed with screening Colonoscopy upon d/c. Once d/c encouraged to continue low fiber diet, to ensure she stays hydrated and to restart her daily stool softner. Home Meds and New Rx's Prescriptions: Continued fluoxetine [Prozac] 40 mg Capsule 40 mg PO DAILY RF: 0 ferrous sulfate [iron] 325 mg (65 mg iron) Tablet 325 mg PO DAILY RF: 0 docusate sodium [Colace] 100 mg Capsule 100 mg PO BID RF: 0 ascorbic acid (vitamin C) [Vitamin C] 1,000 mg Tablet 1,000 mg PO DAILY RF: 0 Discharge Instructions Additional Instructions: Discussed following up with her PCP and scheduling screening Colonoscopy upon d/c. She would prefer to see a home health assistant for her Colonoscopy needs. Will leave this referral up to her PCP. Activity:: Activity as Tolerated Equipment/Supplies:: No Equipment Needed Diet:: Soft, Low fiber diet Discharge Orders Discharge Orders: Discharge Order (Routine); Ordered 04/29/19 Ordered By: Matilde Marcelo DS: Data Vitals/I&O Vitals and I&O: Vital Signs Temperature 36.5 C 04/29/19 03:30 Temperature Source Skin 04/29/19 03:30 Pulse 69 04/29/19 03:30 Pulse Rhythm Regular 04/29/19 03:30 Respiratory Rate 16 04/29/19 03:30 Respiratory Effort Non-Labored 04/29/19 03:30 Respiratory Depth Normal 04/29/19 03:30 Respiratory Pattern Normal 04/29/19 03:30 Blood Pressure 99/68 L 04/29/19 03:30 Blood Pressure Position Sitting 04/27/19 19:44 Pulse Oximetry 98 04/29/19 03:30 Oxygen Delivery Method Room Air 04/29/19 03:30 Oxygen Flow Rate 0 04/29/19 03:30 Pain Level 0 04/29/19 03:30 Intake & Output 04/28/19 04/29/19 04/29/19 18:59 06:59 18:59 Intake Total 939.583 / 2179.583 1240 / 2179.583 Output Total 750 / 750 Balance 939.583 / 1429.583 490 / 1429.583 Intake: IV 939.583 / 5368.879 3914 / 1939.583 Oral 240 / 240 Output: Urine 750 / 750 Other: Urine Color Yellow Urine Appearance Clear Clear Urine Odor None Comment voids independently in toilet Voiding Methods Toilet Data Completed and Pending Labs on day of discharge: Labs from last 24 hours 04/28/19 04/28/19 07:18 07:18 Sodium 144 Potassium 4.1 Chloride 110 H Carbon Dioxide 27.9 Anion Gap 6.1 BUN 12 D Creatinine 0.59 Estimated GFR/1.73 m2 >= 60.00 Glucose 88 Calcium 8.0 L Magnesium 1.9 PFSH Social History Smoking/Tobacco Use Status: Former Tobacco Use Alcohol Intake: current Alcohol Intake frequency: a few times a week Drug use: Never Do you feel safe at home: Yes Do you feel safe in your relationship?: Yes Documented by User: Matilde Marcelo MD 04/29/19 10:29 Discharge Plan Disposition Patient Disposition: HOME Condition: Stable Discharge Details Chief Complaint: Abd Prob Clinical Impression: Ileitis, Partial bowel obstruction Reason For Visit: ILEITIS, PARTIAL SBO Admit Date/Time: 04/27/19 23:20 Admit Provider: Yady Walls Attending Provider: Yady Walls Primary Care Provider: Chikis Grant ED Provider: Kelsey Huber Hospital Course Hospital Course: 53 y/o female admitted through the ER for abdominal pain, with question of partial small bowel obstruction on CT scan. Her symptoms resolved after being NPO and with IV hydration x ~16hrs. She was then started on low fiber diet for dinner which she tolerated well. Discussed that she should proceed with screening Colonoscopy upon d/c. Once d/c encouraged to continue low fiber diet, to ensure she stays hydrated and to restart her daily stool softner. Home Meds and New Rx's Prescriptions: Continued fluoxetine [Prozac] 40 mg Capsule 40 mg PO DAILY RF: 0 ferrous sulfate [iron] 325 mg (65 mg iron) Tablet 325 mg PO DAILY RF: 0 docusate sodium [Colace] 100 mg Capsule 100 mg PO BID RF: 0 ascorbic acid (vitamin C) [Vitamin C] 1,000 mg Tablet 1,000 mg PO DAILY RF: 0 Discharge Instructions Additional Instructions: Discussed following up with her PCP and scheduling screening Colonoscopy upon d/c. She would prefer to see a home health assistant for her Colonoscopy needs. Will leave this referral up to her PCP. Activity:: Activity as Tolerated Equipment/Supplies:: No Equipment Needed Diet:: Soft, Low fiber diet Discharge Orders Discharge Orders: Discharge Order (Routine); Ordered 04/29/19 Ordered By: Matilde Marcelo DS: Summary Status at Discharge Functional status at discharge: independent ambulation Overall status at discharge: patient is back to baseline Mental Status: mental status grossly normal Speech and Movement: speech and movement normal Mood: congruent mood Affect: normal affect Exam Psych Mental Status: mental status grossly normal Speech and Movement: speech and movement normal Mood: congruent mood Affect: normal affect [facility] Social History Smoking/Tobacco Use Status: Former Tobacco Use Alcohol Intake: current Alcohol Intake frequency: a few times a week Drug use: Never Do you feel safe at home: Yes Do you feel safe in your relationship?: Yes
[2019-04-29 07:48] VITALS: BP 95/64; PULSE 72; RESP 17; TEMP 36.7; O2SAT 97
[2019-04-29] MEDS: Docusate Sodium 100 MG CAP PO (08:33)
[2019-04-29] MEDS: FLUoxetine 20 MG CAP 40 MG PO (08:33)
--- NOTE | 2019-04-29 17:29 | PDOC.CMDIS ---
- If Service Date Differs Date of service: 04/29/19 Time of Service: 17:29 LACE Index Scoring Tool - Questions: Length of Stay (in days): 2 Acuity (Admit via E.D.?): Yes E.D. Visits: 1 - Answers: Total Score: 6 Risk of Readmission: Low Risk Care Management Discharge Reason for Hospitalization: Partial SBO Discharge Plan: Marilin will be discharged home with no new services. She will follow up with her provider and discharge plan of care. marilin will transport via private vehicle with her . Patient/Family Education Needs: Discharge plan, limitations, follow up plan, Ask Me Three.
== END 2019-04-29 11:29 | disposition home or self-care (01) ==
LOC: ER 23:51 → MS 04-28 00:28
PROVIDERS: Admitting Provider Surgery; Emergency Provider Physician Assistant; PCP Legal Medicine; Referring Provider Legal Medicine; Visit Provider Surgery
DX: K56.600 Partial intestinal obstruction, unspecified as to cause (principal); F32.9 Major depressive disorder, single episode, unspecified
CPT/HCPCS: 36415; 80048; 80053; 83690; 96361; 96374; 96375; 96376; 99223; 99233; 99238; 99285; NC; 74177; 81003; 83735; 85025; 99284; G0378; J2405; J3490; Q9967

== ENCOUNTER 2020-09-12 07:22 | Emergency (ER) | payer OTHER, SELFPAY ==
[2020-09-12 07:26] VITALS: BP 112/82; PULSE 86; RESP 18; TEMP 36.6; O2SAT 98
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
[2020-09-12 08:05] LABS: HCT 42.5 % (36.0-46.0); MCH 29.4 pg (27.0-33.0); MCHC 32.9 % (32.0-36.0); MCV 89.3 fL (80-95); MPV 9.9 fL (8.0-11.0); Platelet Count 274 10^3/uL (130-400); RBC 4.76 10^6/uL (3.93-5.22); RDW 12.1 % (11.7-14.6); RDW-SD 39.3 fL; WBC 6.24 10^3/uL (4.4-10.8)
[2020-09-12] MEDS: Ketorolac 15 MG/ML VIAL IVP (08:06)
[2020-09-12] MEDS: diazePAM 10 MG/2 ML SYR 2.5 MG IVP (08:07)
[2020-09-12] MEDS: Normal Saline 1,000 ML 1000 ML IV (08:07)
[2020-09-12 08:12] LABS: Anion Gap 5.2 mmol/L (3-11); BUN 18 mg/dL (7-18); CO2 29.8 mmol/L (21.0-32.0); CREATININE 0.7 mg/dL (0.55-1.02); Calcium 9.3 mg/dL (8.5-10.1); Chloride 106 mmol/L (98-107); Glucose 103 mg/dL (74-106); Potassium 4.1 mmol/L (3.5-5.1); Sodium 141 mmol/L (136-145)
--- NOTE | 2020-09-12 08:26 | DI.RAD_ITS ---
EXAM: XR LUMBAR SPINE AP, LAT CLINICAL HISTORY: L > R spasm, pain. Fall in winter. TECHNIQUE: 2D digital imaging was performed. COMPARISON: No exams were available for comparison FINDINGS: There are 5 lumbar type vertebral bodies. There is normal alignment. No acute fracture or subluxati on is seen. Degenerative changes are seen at T12-L1 and L3-L4. There are degenerative changes of th e facet joints. The soft tissues are unremarkable. Surgical clips are seen in the pelvis. There is a large amount of retained stool in the colon. IMPRESSION: 1. No acute abnormality in the lumbar spine. Mild degenerative changes are present. 2. Large amount of retained stool. DATA REPOSITORY: RADIATION DOSE DELIVERED:
[2020-09-12] MEDS: MAGNESIUM SULFATE 2 GM/50 ML BAG IVPB (08:35)
[2020-09-12 09:54] VITALS: BP 111/74; PULSE 72; RESP 18; TEMP 36.6; O2SAT 100
== END 2020-09-12 10:32 | disposition home or self-care (01) ==
PROVIDERS: Emergency Provider Emergency Medicine; PCP Legal Medicine
DX: M62.830 Muscle spasm of back (principal)
CPT/HCPCS: 36415; 80048; 85027; 96361; 96365; 96366; 96375; 99284; 72100; J1885; J3360